=== PATIENT | female | born 1980 | race African-American/Black ===

== ENCOUNTER 2016-04-25 09:18 | Observation (INO) | payer OTHER, SELFPAY ==
[2016-04-21 15:02] LABS: HEMATOCRIT 33.9 % (36.0-48.0); HEMOGLOBIN 11.3 g/dL (12.0-16.0)
[2016-04-21 15:09] LABS: INTERNATIONAL NORMAL RATI 1.1 UNITS (-); PARTIAL THROMBO TIME 25.3 SEC (22.5-37.2); PROTIME (NOT ORD) 14.2 SEC (12.0-14.5)
[2016-04-21 15:39] LABS: PFA (COL/EPI) 107 SEC (72-180)
[2016-04-21 16:31] LABS: A/G RATIO 0.8 (0.7-1.9); ALBUMIN 3.8 G/DL (3.5-5.0); ALKALINE PHOSPHATASE 74 U/L (45-117); BUN (BLOOD UREA NITROGEN) 10 MG/DL (6-23); CALCIUM, SERUM 8.9 MG/DL (8.5-10.4); CHLORIDE, SERUM 103 MMOL/L (96-112); CO2 (CARBON DIOXIDE) 31 MMOL/L (24-34); CREATININE 0.59 MG/DL (0.55-1.02); GFR AFRICAN AMERICAN 136 ML/MIN (>=60); GFR NON AFRICAN AMERICAN 117 ML/MIN (>=60); GLOBULIN 4.8 G/DL (2.5-4.1); GLUCOSE, SERUM 85 MG/DL (60-99); POTASSIUM, SERUM 3.9 MMOL/L (3.5-5.3); SGOT(AST) 8 U/L (5-40); SGPT(ALT) 17 U/L (5-65); SODIUM, SERUM 140 MMOL/L (135-148); TOTAL BILIRUBIN 0.8 MG/DL (0-1.2); TOTAL PROTEIN 8.6 G/DL (6.0-8.5)
[2016-04-22 08:38] LABS: BASOPHILS 0.3 %; BASOPHILS ABSOLUTE 0.02 10/3/uL (0.0-0.16); EOSINOPHILS 4.4 %; EOSINOPHILS ABSOLUTE 0.35 10/3/uL (0.0-0.53); IMMATURE GRANULOCYTES 0.4 %; IMMATURE GRANULOCYTES ABSOLUTE 0.03 10/3/uL (0.0-0.11); LYMPHOCYTES ABSOLUTE 1.35 10/3/uL (0.67-4.30); MEAN CORPUS HGB CONC 32.2 g/dL (32.0-36.0); MEAN CORPUSCULAR HEMOGLOB 24.6 pg (26.0-34.0); MEAN CORPUSCULAR VOLUME 76.3 fL (80-100); MONOCYTES 2.9 %; MONOCYTES ABSOLUTE 0.23 10/3/uL (0.21-1.20); NEUTROPHILS ABSOLUTE 5.94 10/3/uL (2.02-8.40); PLATELET COUNT 434 10/3/uL (150-400); RBC DISTRIBUTION WIDTH 16.3 % (12.0-16.0); WHITE BLOOD CELLS 7.9 10/3/uL (4.5-10.5)
[2016-04-22 08:39] LABS: MANUAL DIFF NO %
--- NOTE | ~2016-04-25 | OP ---
Record Of Operation [facility] [address] [place]. [address] NAME: DEB BARCLAY : 76 STATUS : DIS Kolby PAT#: [id number] AGE: 35 ADM/REG DATE : 04/25/16 MR#: [id number] REPORT SERV DATE: 04/27/16 DICTATED BY: KALYN CHAND DATE: 04/26/16 REPORT STATUS : Draft TRANSCRIBED BY: MODPayton DATE: 04/26/16 DATE OF PROCEDURE: 04/25/2016 PREOPERATIVE DIAGNOSIS: Breast cancer, surgical absence of the breast by inframammary crease nipple-sparing technique. PROCEDURE: Bilateral tissue expansion, acellular dermal matrix reconstruction. INDICATIONS AND FINDINGS OF THE PROCEDURE: This young lady reports with a genetic defect, anticipating bilateral mastectomy. She is appropriate for same. History of breast cancer. DETAILS OF THE PROCEDURE: The patient presents on the operating table after bilateral hidden scar technique mastectomies. First, our attention was turned to the right. The pectoralis muscle was released. An appropriately reconstituted medium contour perforated sheet of acellular dermal matrix was then sewn to the cut edge of the pectoralis muscle. The purpose of the acellular dermal matrix was to supplement the soft tissue envelope, recreate the inframammary crease, and control the position of the tissue cloth finisher. This was then sewn medially, laterally, and to the inframammary crease leaving central area on snaps ready to accept the tissue cloth finisher. A pectoralis and sub-serratus plane block was then carried out with ropivacaine and the Precedex solution, and a 225 tissue cloth finisher was placed behind the muscle AlloDerm construct. The AlloDerm was sewn tightly around its edge. It was tab-fixed to the chest wall and filled to 150. She was cleansed with Hibiclens, again inferior drains were placed. The nipple-areolar complex was stabilized with a stitch and she was then closed with multiple layers of 3-0 PDS and Monocryl through to an intracuticular in the skin in a progressive tension fashion. Contralaterally an identical procedure was carried out. The pectoralis muscle was elevated and identical sheet of acellular dermal matrix was used to an identical purpose. Identical tissue cloth finisher was used to an identical purpose. She was infiltrated with ropivacaine, irrigated, inferior drains were placed and the implant was filled to 150. The nipple-areolar complex was stabilized with PDS. The soft tissue envelope was then controlled with a layer of progressive tension 3-0 PDS and then 3-0 Monocryl through to an intracuticular in the skin. She was cleansed with peroxide. Nitroglycerin paste dry dressings were placed on the nipple-areolar complexes and creases and she was remanded to the recovery room in stable condition. All sponge and needle counts were correct. BROOKE/LYNNE Kalyn Chand M.D. / [id number] CC: Breanna An MD
--- NOTE | ~2016-04-25 | OP ---
Record Of Operation [facility] [address] [place]. [address] NAME: DEB PIMENTEL : 76 STATUS : DIS Kolby PAT#: [id number] AGE: 35 ADM/REG DATE : 04/25/16 MR#: [id number] REPORT SERV DATE: 04/28/16 DICTATED BY: NINO ORTEZ DATE: 04/25/16 REPORT STATUS : Draft TRANSCRIBED BY: MODPayton DATE: 04/25/16 DATE OF PROCEDURE: 04/25/2016 PREOPERATIVE DIAGNOSES: 1. Right breast invasive ductal cancer. 2. APC gene mutation of unknown significance. POSTOPERATIVE DIAGNOSES: 1. 2. Right breast invasive ductal cancer. 3. APC gene mutation of unknown significance. PROCEDURE: 1. Bilateral nipple-sparing mastectomy through an inframammary crease incision. 2. Right axillary sentinel lymph node biopsy. INDICATION FOR THE PROCEDURE: Ms Pimentel is a young, healthy, 35-year-old [facility] female who was diagnosed with a right breast invasive ductal cancer in the [facility] recently. This is an invasive ductal cancer, ER/MS positive, HER2 negative with a moderate growth fraction. She does have aunts who live in the [facility] and she did come here to the stage for treatment. She has an APC gene mutation, which has unknown significance; however, she has decided on bilateral mastectomy. She presented for lymphoscintigraphy scan earlier today showing good uptake in the right axilla. Dr. Chand is planning on immediate first- stage reconstruction and has marked the patient for inframammary crease incisions. We do think she is a wonderful candidate for breast preservation. DESCRIPTION OF PROCEDURE: After appropriate consent was on the chart, the patient was taken to the operating room in supine position. She was placed under general anesthesia without any complications. The gamma probe was placed into the right axilla and good uptake noted. Methylene blue was not utilized. The bilateral chest wall and axilla were prepped and draped in sterile fashion. An incision was made in the inframammary crease on the right side, and sharp dissection carried down to the level of breast parenchyma. Dissection was carried through the breast tissue to the pectoralis major muscle and the posterior flap was created first. Dissection was carried out across the pectoralis muscle raising the fascia off the muscle. Dissection was carried to the extent of the breast parenchyma in all directions. Following this, the anterior flap was created in a routine fashion. Care was taken to take the tissue close to the posterior nipple later. The breast was divided from the axillary fat pad and the axillary tail. It was marked with sutures and sent for permanent pathology. The tumor had been marked on the skin prior to surgery, care was noted to stay well outside of this mass. The right axillary sentinel node was performed in a routine fashion. Two lymph nodes were taken, the first with an ex-vivo count of approximately 30,000, the second with an ex-vivo count of approximately 1600, both of these lymph nodes were evaluated by pathology and noted to have no obvious malignant cells. The wound was copiously irrigated with warm saline and hemostasis was achieved. A wet lap sponge was placed. The left mastectomy was performed in a similar fashion. An inframammary crease incision was made and sharp dissection carried down through the breast parenchyma to Record Of Operation [address] [address] NAME: DEB PIMENTEL : 76 STATUS : DIS Kolby PAT#: [id number] AGE: 35 ADM/REG DATE : 04/25/16 MR#: [id number] REPORT SERV DATE: 04/28/16 DICTATED BY: NINO ORTEZ DATE: 04/25/16 REPORT STATUS : Draft TRANSCRIBED BY: LYNNE DATE: 04/25/16 the pectoralis major muscle. The posterior flap was created first and the breast raised off the pectoralis major muscle with the fascia intact to the breast. The anterior flap was created similarly. The extent of the dissection extended to the natural end of the breast tissue in all directions. The breast was divided from the axillary fat pad and the axillary tail, marked with sutures and sent for permanent pathology. The wound was copiously irrigated with warm saline and hemostasis was achieved. A wet lap sponge was placed. The Plastic Surgery took over for their portion of the case. Please see their notes for further details. At the end of my portion of the case, all counts were correct. Estimated blood loss was 200 mL. COMPLICATIONS: None. SPECIMEN: Bilateral breast, right sentinel lymph node x2. LAZARO/LYNNE Nino Ortez MD / [id number] CC: MD Jonas Escobar M.D. [facility]
[~2016-04-25 09:18] MED LIST: ACET500CAP PO; MULTIVIT/MIN PO
[2016-04-26] MEDS ORDERED: PCET PO (12:25)
[2016-04-26] MEDS ORDERED: AT25 PO (12:26)
[2016-04-26] MEDS ORDERED: K500 PO (12:27)
[2016-04-26] MEDS ORDERED: ALEVE220 MG PO (12:27)
[2016-04-26] MEDS ORDERED: MOMUD PO (12:27)
[2016-08-20] MEDS ORDERED: TAMOXIFEN20 M1 PO (11:30)
== END 2016-04-26 13:52 | disposition home or self-care (01) ==
LOC: SDC 09:18 → 5SO 18:04
PROVIDERS: Surgery Surgery of the Hand; Surgery Surgical Oncology
PROC: 0HHV0NZ Insertion of Tissue Expander into Bilateral Breast, Open Approach (ICD-10-PCS; 2016-04-25)
PROC: 07B50ZX Excision of Right Axillary Lymphatic, Open Approach, Diagnostic (ICD-10-PCS; principal; 2016-04-25 13:15)
PROC: 0HBV0ZZ Excision of Bilateral Breast, Open Approach (ICD-10-PCS; 2016-04-25 13:15)
DX: C50.911 Malignant neoplasm of unspecified site of right female breast (principal); Z17.0 Estrogen receptor positive status [ER+]; D64.9 Anemia, unspecified; Z79.899 Other long term (current) drug therapy
CPT/HCPCS: 71020; 78195; 80053; 84703; 85014; 85018; 85025; 85576; 85610; 85730; 88307; 88331; 88342; 88360; 96374; 96375; 96376; A9270-GY; A9541; C1789; G0378; J0690; J1885; J2250; J2270; J2370; J2405; J2710; J2795; J3010; Q4116

== ENCOUNTER 2016-08-22 09:30 | Day surgery (SDC) | payer OTHER ==
--- NOTE | ~2016-08-22 | OP ---
Record Of Operation [facility] [address] [place]. [address] NAME: DEB BARCLAY : 76 STATUS : REG [facility] PAT#: [id number] AGE: 36 ADM/REG DATE : 08/22/16 MR#: [id number] REPORT SERV DATE: 08/22/16 DICTATED BY: KALYN CHAND DATE: 08/22/16 REPORT STATUS : Draft TRANSCRIBED BY: LYNNE DATE: 08/22/16 DATE OF PROCEDURE: 08/22/2016 PREOPERATIVE DIAGNOSIS: Surgical absence of the breast. POSTOPERATIVE DIAGNOSIS: Surgical absence of the breast. PROCEDURE: Bilateral tissue machine shorthand reporter exchange to definitive silicone implants. INDICATIONS AND FINDINGS OF THE PROCEDURE: This 36-year-old female who is status post a breast reconstruction with tissue expansion technique. She is now appropriate for implant exchange to definitive silicone implants. DETAILS OF THE PROCEDURE: The patient was brought to the operating room after being marked in the preoperative holding area. She was prepped and draped in the usual sterile fashion for the above-described procedure. First, our attention was turned to the right breast inframammary crease, incision was made. Dissection was carried down to the implant. The implant was ruptured and removed. A superior capsulotomy was then carried out. She was packed with Hibiclens and inferior 10-Wolof drain was placed. Our attention was turned contralaterally. Inframammary crease incision was made. Dissection was carried down to the implant. The implant was ruptured and removed. Superior and medial capsulotomy were carried out here and there was some lateral capsulorrhaphy carried out with the Bovie on high heat. She was checked for hemostasis, irrigated, and inferior drain was placed. Then a 260 mL moderate height implant was placed into the right side. This was manipulated into an appropriate position and the wounds were then closed with a deep layer of 3-0 Vicryl and multiple layers of Monocryl through to an intracuticular in the skin. Similar procedure was carried out on the left, again, the implant being placed, adjusted, and then closed with a deep layer of 3-0 Vicryl and multiple layers of 3-0 Monocryl through to an intracuticular in the skin. She was cleansed with peroxide. The drains were set to suction. A light dry dressing and bra were placed, and she was remanded to the recovery room in stable condition. All sponge, needle counts were correct. BROOKE/LYNNE Kalyn Chand M.D. / [id number] CC: Kalyn Chand M.D.
[~2016-08-22 09:30] MED LIST changes: +ALEVE220 MG PO; +AT25 PO; +K500 PO; +MOMUD PO; +PCET PO; +TAMOXIFEN20 M1 PO
[2016-08-22 10:33] LABS: BASOPHILS 0.9 %; BASOPHILS ABSOLUTE 0.03 10/3/uL (0.0-0.16); EOSINOPHILS 4.4 %; EOSINOPHILS ABSOLUTE 0.15 10/3/uL (0.0-0.53); HEMOGLOBIN 9.8 g/dL (12.0-16.0); LYMPHOCYTES 43.2 %; LYMPHOCYTES ABSOLUTE 1.46 10/3/uL (0.67-4.30); MEAN CORPUS HGB CONC 32.3 g/dL (32.0-36.0); MONOCYTES 8.6 %; MONOCYTES ABSOLUTE 0.29 10/3/uL (0.21-1.20); NEUTROPHILS 42.9 %; NEUTROPHILS ABSOLUTE 1.45 10/3/uL (2.02-8.40); RED CELL COUNT 4.63 10/6/uL (4.0-5.6)
[2016-08-22 10:34] LABS: HEMATOCRIT 30.3 % (36.0-48.0); MANUAL DIFF NO %; MEAN CORPUSCULAR HEMOGLOB 21.2 pg (26.0-34.0); MEAN CORPUSCULAR VOLUME 65.4 fL (80-100); PLATELET COUNT 302 10/3/uL (150-400); WHITE BLOOD CELLS 3.4 10/3/uL (4.5-10.5)
[2016-08-22 10:41] LABS: INTERNATIONAL NORMAL RATI 1.1 UNITS (-); PARTIAL THROMBO TIME 26.4 SEC (22.5-37.2); PROTIME (NOT ORD) 14.4 SEC (12.0-14.5)
[2016-08-22 10:50] LABS: PFA (COL/EPI) 133 SEC (72-180)
[2016-08-22 10:53] LABS: ANISOCYTOSIS 1+ (5-10/OIF) (0-5/OIF); PLATELET ESTIMATE ADQ (ADEQUATE)
[2016-08-22 10:54] LABS: POLYCHROMASIA 1+ (2-5/OIF) (0-1/OIF)
== END 2016-08-22 20:17 | disposition home or self-care (01) ==
LOC: SDC 09:30
PROVIDERS: Surgery Surgery of the Hand
PROC: 0HHV0NZ Insertion of Tissue Expander into Bilateral Breast, Open Approach (ICD-10-PCS; principal; 2016-08-22 10:45)
DX: Z42.1 Encounter for breast reconstruction following mastectomy (principal); Z90.13 Acquired absence of bilateral breasts and nipples
CPT/HCPCS: 84703; 85025; 85576; 85610; 85730; A9270-GY; C1769; C1789; J0690; J1885; J2250; J2270; J2405; J3010